=== PATIENT | female | born 1975 | race Two or more races ===

== ENCOUNTER 2018-11-27 07:58 | Outpatient (CLI) | payer OTHER ==
[~2018-11-27 07:58] MED LIST: ALLEGRA ALLERG180 MG PO; FLONASE16 GM NS; PROTONIX40 MG PO; SINGULAIR10 MG PO; SYNTHROID100 MCG PO; SYNTHROID125 MCG PO
== END 2018-11-27 08:10 | disposition home or self-care (01) ==
LOC: MAMO-SONO 07:58
DX: N60.11 Diffuse cystic mastopathy of right breast (principal); Z12.31 Encounter for screening mammogram for malignant neoplasm of breast

== ENCOUNTER → 2019-10-13 | Outpatient (CLI) | payer OTHER | END | disposition home or self-care (01) | LOC: RAD 10:21 | DX: R10.2 Pelvic and perineal pain (principal); N92.1 Excessive and frequent menstruation with irregular cycle ==

== ENCOUNTER 2019-11-24 09:44 | Outpatient (CLI) | payer OTHER | END 2019-11-24 09:58 | disposition home or self-care (01) | LOC: LAB 09:44 | DX: D50.8 Other iron deficiency anemias (principal); D68.8 Other specified coagulation defects; E83.51 Hypocalcemia; N39.0 Urinary tract infection, site not specified; N83.209 Unspecified ovarian cyst, unspecified side ==

== ENCOUNTER 2019-11-24 10:14 | Outpatient (CLI) | payer OTHER | END 2019-11-24 10:32 | disposition home or self-care (01) | LOC: RAD 10:14 | DX: Z01.811 Encounter for preprocedural respiratory examination (principal) ==

== ENCOUNTER → 2019-12-07 | Day surgery (SDC) | payer OTHER ==
[~2019-12-07] MED LIST changes: +MULTI VITAMIN1 EACH PO; +PREVACID15 MG PO
== END | disposition home or self-care (01) ==
LOC: ADM 12-03 10:45 → CIR.AMB 05:46
DX: N92.1 Excessive and frequent menstruation with irregular cycle (principal)

== ENCOUNTER 2020-03-10 08:07 | Outpatient (CLI) | payer OTHER | END 2020-03-10 08:22 | disposition home or self-care (01) | LOC: MAMO-SONO 08:07 | PROVIDERS: ATTEND Specialist | DX: Z12.31 Encounter for screening mammogram for malignant neoplasm of breast (principal); N63.10 Unspecified lump in the right breast, unspecified quadrant; N63.20 Unspecified lump in the left breast, unspecified quadrant ==

== ENCOUNTER 2021-03-11 13:29 | Outpatient (CLI) | payer OTHER | END 2021-03-11 13:41 | disposition home or self-care (01) | LOC: MAMO-SONO 13:29 | PROVIDERS: ATTEND Specialist | DX: N63.10 Unspecified lump in the right breast, unspecified quadrant (principal); N63.20 Unspecified lump in the left breast, unspecified quadrant; Z12.31 Encounter for screening mammogram for malignant neoplasm of breast ==